=== PATIENT | female | born 1980 | race Caucasian/White ===

== ENCOUNTER → 2023-11-17 09:42 | Outpatient (BNVA) | payer BC, SELFPAY | PROVIDERS: PCP Nurse Practitioner Family; Visit Provider Emergency Medicine | DX: R35.0 Frequency of micturition (principal); R10.30 Lower abdominal pain, unspecified; R10.2 Pelvic and perineal pain; R31.1 Benign essential microscopic hematuria | CPT/HCPCS: 81000 ==

== ENCOUNTER → 2024-01-17 15:32 | Outpatient (BNVA) | payer BC, SELFPAY | PROVIDERS: PCP Nurse Practitioner Family; Referring Provider Nurse Practitioner Family; Visit Provider Nurse Practitioner Women's Health | DX: N93.9 Abnormal uterine and vaginal bleeding, unspecified (principal) | CPT/HCPCS: 82670; 83001; 83002; 84443 ==

== ENCOUNTER → 2024-02-05 09:19 | Outpatient (BNVA) | payer BC, SELFPAY | PROVIDERS: PCP Nurse Practitioner Family; Visit Provider Obstetrics & Gynecology | DX: N94.9 Unspecified condition associated with female genital organs and menstrual cycle (principal) | CPT/HCPCS: 76830 ==

== ENCOUNTER → 2024-03-11 14:40 | Outpatient (BNVA) | payer BC, SELFPAY | PROVIDERS: PCP Nurse Practitioner Family; Visit Provider Obstetrics & Gynecology | DX: Z01.419 Encounter for gynecological examination (general) (routine) without abnormal findings (principal) | CPT/HCPCS: 87624; 88305 ==

== ENCOUNTER 2024-04-04 09:21 | Observation (INO) | payer BC, SELFPAY ==
[2024-04-04] VITALS (16 sets, daily range): BP systolic 95–136; BP diastolic 59–82; PULSE 65–92; RESP 16–19; TEMP 36.4–37.1; O2SAT 94–100
--- NOTE | 2024-04-04 00:46 | W.PM.OPSFHP ---
Same Day Surgery H&P Indication for Procedure/HPI DATE OF PROCEDURE: April 04, 2024 CHIEF COMPLAINT/INDICATIONFOR SURGICAL PROCEDURE: chronic pelvic pain; dysmenorrhea PREOP DIAGNOSIS: chronic pelvic pain; dysmenorrhea PLANNED PROCEDURE: Operation Date: 04/04/24 07:00 Proposed Procedures p Total Vaginal Hysterectomy 81482, R10.2, G89.29, N92.6(Not Applicable) - Ancelmo Green MD s Salpingo-Oophorectomy (Vaginal)(Bilateral) - Ancelmo Green MD 44 y.o. with h/o irregular, heavy, and painful periods with chronic pelvic pain now scheduled for total vaginal hysterectomy, bilateral salpingo-oophorectomy Medications/Allergies* Home Medications Medication Instructions Recorded Confirmed Type norgestimate 0.25 mg-ethinyl 1 tab PO DAILY 04/03/24 04/03/24 History estradiol 35 mcg tablet (Sprintec (28)) Allergies/Adverse Reactions Allergy/AdvReac Type Severity Reaction Status Date / Time No Known Allergies Allergy Verified 04/03/24 09:21 Pertinent History/Comorbid Conditions* Family History (Updated 01/17/24 @ 14:16 by Yumiko Dooley, FRANCK) Denies family history of Colon cancer Ovarian cancer Diabetes Heart disease Hyperlipidemia Breast cancer Hypertension Uterine cancer Thyroid disease Stroke Social History Smoking and tobacco/nicotine status: current every day tobacco/nicotine user Pertinent Exam Findings alert, oriented x 3, clear to auscultation bilaterally and regular rate & rhythm Pertinent Data Pelvic sono 02-05-24 uterus 9.5 x 4.5 x 6.1 cm Endometrium 1.3 cm Normal right ovary Left ovary with 4 cm cyst, isoechoic pathology 03-11-24 EMBx - benign proliferative endometrium Recommendations Surgery/Procedure today Coding Level of Care Code Acute Code for Chg Fwd Time Spent (min) 20
--- NOTE | 2024-04-04 06:01 | ANES.PREANE2 ---
Pre-Anesthetic Assessment Height/Weight: Height 5 ft 7 in Preop Diagnosis: dysmenorrhea, chronic pelvic pain Operation Date: 04/04/24 07:00 Proposed Procedures p Total Vaginal Hysterectomy 94893, R10.2, G89.29, N92.6(Not Applicable) - Ancelmo Green MD s Salpingo-Oophorectomy (Vaginal)(Bilateral) - Ancelmo Green MD Was Beta Mu taken within 24 hours: N/A Was Clonidine taken within 24 hours: N/A Social Tobacco and No alcohol Exam alert, oriented x 3, clear to auscultation bilaterally and regular rate & rhythm Airway Submandibular: within normal limits Cervical ROM: within normal limits Mallampati: Class II Dentition: full Anesthetic Plan ASA status: 2 Anesthesia: General Other: No prior issues with anesthesia NPO since yesterday evening History of TMJ, good mouth opening Denies any cardiac issues Current smoker METs greater than 4 Patient had gum and mouth this a.m. around 0600. Will plan on giving Pepcid and glyco. Plan for GETA Medications/Allergies Allergies Allergy/AdvReac Type Severity Reaction Status Date / Time No Known Allergies Allergy Verified 04/03/24 09:21 [facility] Anesthesia Family History Denies family history of Colon cancer Ovarian cancer Diabetes Heart disease Hyperlipidemia Breast cancer Hypertension Uterine cancer Thyroid disease Stroke Social History Smoking and tobacco/nicotine status: current every day tobacco/nicotine user Data Anesthesia Cardiac Studies: No Data to Display
[2024-04-04] MEDS: sodium chloride 0.9% 1,000 ML 30 ML IV (06:39)
--- NOTE | 2024-04-04 06:53 | W.PM.OPSUD ---
Surgery/Procedure H&P Update DATE OF PROCEDURE: April 04, 2024 DATE H&P PERFORMED: 04/04/24 H&P UPDATE INFORMATION: I have reviewed H&P completed within last 30 days, I have examined patient prior to procedure and No changes to prior documentation PREOP DIAGNOSIS: dysmenorrhea, chronic pelvic pain PLANNED PROCEDURE: Operation Date: 04/04/24 07:00 Proposed Procedures p Total Vaginal Hysterectomy 65899, R10.2, G89.29, N92.6(Not Applicable) - Ancelmo Green MD s Salpingo-Oophorectomy (Vaginal)(Bilateral) - Ancelmo Green MD
[2024-04-04 07:01] LABS: Basophils # 0.1 10^3/uL (0.0-0.1); Basophils % 0.6 %; Eosinophils # 0.1 10^3/uL (0.0-0.8); Eosinophils % 0.8 %; Hematocrit 45.1 % (36-47); Lymphocytes # 2.9 10^3/uL (0.8-4.8); Lymphocytes % 19.7 %; Mean Corpuscular HGB Conc 33.5 g/dL (30-55); Mean Corpuscular Hemoglobin 32.3 pg (27-33); Mean Corpuscular Volume 96.6 fl (85-98); Mean Platelet Volume 9.2 fL (7.4-10.4); Monocytes # 1.2 10^3/uL (0.2-0.9); Neutrophils # 10.22 10^3/uL (1.8-7.7); Neutrophils % 70.6 %; Nucleated Red Blood Cells % 0 %; Platelet Count 293 10^3/cmm (157-399); Red Blood Count 4.67 10^6/uL (3.85-5.65); Red Cell Distribution Width 13.7 % (12.1-15.1); White Blood Count 14.45 10^3/uL (3.29-11.43)
[2024-04-04] MEDS: famotidine 20 mg/2 mL INJ IVP (07:01)
[2024-04-04] MEDS: ceFAZolin 2,000 mg SDV 2000 MG IVP (07:08)
[2024-04-04] MEDS: lidocaine-epi 2% PF 1:200,000 20 mL SDV XX (07:40)
--- NOTE | 2024-04-04 09:03 | P.OP_ITS ---
Operative Report Date of procedure: April 04, 2024 Pre-op diagnosis: chronic pelvic pain chronic dysmenorrhea Post-op diagnosis: same Post-op findings: normal-sized uterus left ovarian endometrioma normal right ovary normal fallopian tubes Procedure done: Total vaginal hysterectomy bilateral salpingo-oophorectomy Specimens removed/disposition: uterus, tubes and ovaries Surgeon: Eyad Cooper MD [employer] Supervisor: Ancelmo Green MD Anesthesia: General Estimated blood loss (mL): 120 Complications: none Findings: normal-sized uterus left ovarian endometrioma normal right ovary normal fallopian tubes Condition: stable Disposition: PACU Brief History: 44 y.o. with chronic pelvic pain and dysmenorrhea Procedure: Informed consent signed. Patient again reiterated her desire to have hysterectomy and both ovaries and tubes removed due to chronic dysmenorrhea, refuses other options such as mirena intrauterine device or preservation of at least one ovary. The patient was taken to the operating room and placed supine on the table. General endotracheal anesthesia was induced. The patient was placed in dorsal lithotomy position, prepped, and draped in the usual sterile fashion. A Odell catheter was placed. A Bookwalter retractor was placed in the vagina. The cervix was grasped with a single-toothed tenaculum. Approximately 10 cc of 2% lidocaine with epinephrine was injected circumferentially submucosally at the cervico-vaginal junction. The cervix was circumferentially incised with the bovie. The bladder was dissected off the pubovesical cervical fascia anteriorly with Metzenbaum scissors and also bluntly with a sponge stick. The anterior cul-de-sac was entered sharply with Metzenbaum scissors, avoiding the bladder. The posterior cul-de-sac was entered using the Metzenbaum scissors. The uterosacral ligaments on both sides were isolated and ligates with O-Vicryl suture ligature. The Ligasure device was used to coagulate, cut and ligate the uterosacral ligaments and the cardinal ligaments on both sides. The uterine arteries were clamped, cut, and ligated with the Ligasure device. Good hemostasis was seen. The broad ligaments on both sides were then clamped, ligated, and cut using the Ligasure device. Both cornua were similarly excised. The uterus was thus removed and sent to pathology. The infundibular ligaments were identified on both sides. The Ligasure device was used to clamp, ligate, and cut the ovarian pedicles, avoiding the ureters. In this fashion, the ovaries and tubes were removed and hemostasis was assured. The pedicles were again inspected and was seen to be hemostatic. The peritoneum was then closed with O-Vicryl suture after the bladder was drained. The vaginal cuff was then closed beginning with transfixing the cardinal and uterosacral ligaments. The cuff was closed with O-Vicryl suture in a running locked fashion. All instruments were then removed. Good hemostasis was observed. Odell catheter was in place. The patient was then place supine and awakend and taken to the PACU in good condition. Postoperative condition: stable EBL: 120 cc Sponge, needle, and instrument counts were correct x two
[2024-04-04] MEDS: fentaNYL 50 mcg/mL INJ 2mL IVP (09:52)
[2024-04-04] MEDS: dextrose 5%-lactated ringers 1,000 ML 125 ML IV (10:47)
[2024-04-04] MEDS: ketorolac 30 mg/mL INJ IVP ×2 (14:35→20:40)
[2024-04-04] MEDS: docusate sodium 100 mg Capsule PO (20:40)
[2024-04-05] MEDS: ketorolac 30 mg/mL INJ IVP (02:40)
[2024-04-05 05:17] VITALS: BP 130/72; PULSE 90; RESP 16; TEMP 36.8; O2SAT 97
[2024-04-05 05:20] LABS: Hematocrit 37.6 % (36-47); Mean Corpuscular Hemoglobin 32.4 pg (27-33); Mean Corpuscular Volume 98.2 fl (85-98); Mean Platelet Volume 8.8 fL (7.4-10.4); Platelet Count 241 10^3/cmm (157-399); Red Blood Count 3.83 10^6/uL (3.85-5.65); Red Cell Distribution Width 13.6 % (12.1-15.1); White Blood Count 22.96 10^3/uL (3.29-11.43)
[2024-04-05] MEDS: ibuprofen 800 mg tablet PO (09:29)
[2024-04-05] MEDS: docusate sodium 100 mg Capsule PO (09:30)
[2024-04-05 09:35] VITALS: BP 135/85; PULSE 95; RESP 16; TEMP 36.6; O2SAT 99
[2024-04-05 10:30] VITALS: BP 135/85; PULSE 95; RESP 16; TEMP 36.6; O2SAT 99
[2024-04-05 10:38] LABS: OR HCG Qualitative Urine Negative (Negative)
== END 2024-04-05 10:40 | disposition home or self-care (01) ==
LOC: OBGYN 09:21
PROVIDERS: Student in an Organized Health Care Education/Training Program; Admitting Provider Obstetrics & Gynecology; PCP Nurse Practitioner Family; Visit Provider Obstetrics & Gynecology
PROC: (CPT 58262; principal; 2024-04-04 07:00)
PROC: (CPT 58720; 2024-04-04 07:00)
DX: N94.6 Dysmenorrhea, unspecified (principal); N89.8 Other specified noninflammatory disorders of vagina; N72 Inflammatory disease of cervix uteri; N80.122 Deep endometriosis of left ovary; F17.200 Nicotine dependence, unspecified, uncomplicated
CPT/HCPCS: 58262; 36415; 81025; 85025; 85027; 86850; 86900; 88307; 96374; 96376; G0378; J0131; J0330; J0690; J1100; J1885; J2704; J3010; J3490; J7030; J7121